=== PATIENT | female | born 1965 | race Caucasian/White ===

== ENCOUNTER 2025-03-30 05:59 | Day surgery (SDC) | payer BC ==
[2025-03-30] MEDS ORDERED: Propofol 200 MG/20 ML SDV IV ONE (06:00)
[2025-03-30] MEDS ORDERED: Lactated Ringers 1,000 ML IV ONE (06:00)
[2025-03-30] MEDS: Lactated Ringers 1,000 ML IV SCH (06:37)
[2025-03-30] MEDS ORDERED: Propofol 200 MG/20 ML SDV ONE (09:40)
== END 2025-03-30 08:44 | disposition home or self-care (01) ==
LOC: DL.ENDO 05:59
PROVIDERS: ATTEND Internal Medicine Gastroenterology
DX: K63.89 Other specified diseases of intestine (principal); K57.30 Diverticulosis of large intestine without perforation or abscess without bleeding; K52.9 Noninfective gastroenteritis and colitis, unspecified
CPT/HCPCS: J2704; J7120